=== PATIENT | male | born 1955 | race Caucasian/White ===

== ENCOUNTER 2021-01-11 07:12 | Emergency (ER) | payer MEDICAID, OTHER ==
[~2021-01-11] VITALS: Ht 175.3 cm; Wt 81.8 kg
[~2021-01-11 07:12] MED LIST: ACET-2247 PO; AUD NEB; BISA10SU11 PR; DOCU-275 PO; HEPA500018 SQ; HYDR-4061 PO; IPRNEB IH; MOM30 PO; SLOMG PO; ZOLP-280 PO
[2021-01-11] MEDS ORDERED: AMPI500C68 PO (07:20)
[2021-01-11] MEDS ORDERED: [UNRECOGNIZED DRUG - CODE] PO (07:54)
[2021-01-11] MEDS ORDERED: AMOX500C2 PO (07:54)
[2021-01-11] MEDS ORDERED: ASPI81TA87 PO (07:54)
[2021-01-11] MEDS ORDERED: LENA10CA PO (07:58)
[2021-01-11] MEDS ORDERED: ACYC200C24 PO (07:58)
[2021-01-11 09:36] LABS: BASOPHILS % (AUTO) 0.3 % (0.0-2.0); EOSINOPHILS % (AUTO) 3.5 % (1.0-6.0); HEMATOCRIT 34.8 % (41-53); HEMOGLOBIN 11.2 g/dL (13.5-17.5); LYMPHOCYTES # (AUTO) 0.8 K/uL (1.0-4.8); LYMPHOCYTES % (AUTO) 13.5 % (22.0-44.0); MEAN CORPUSCULAR HEMOGLOBIN 30.5 pg (26.0-34.0); MEAN CORPUSCULAR HGB CONC 32.1 G/dL (31.0-37.0); MEAN CORPUSCULAR VOLUME 95 fL (80-100); MONOCYTES # (AUTO) 0.8 K/uL (0.1-1.0); MONOCYTES % (AUTO) 12.7 % (2.0-9.0); NEUTROPHILS # (AUTO) 4.3 K/uL (1.8-7.7); PLATELET COUNT (AUTO) 365 K/uL (150-450); RED BLOOD CELL COUNT(AUTO) 3.66 MIL/uL (4.50-5.90); RED CELL DISTRIBUTION WIDTH 16.7 % (11.5-14.5)
[2021-01-11 09:43] LABS: ANION GAP 6 mmol/L (8-16); CALCIUM, TOTAL 8.6 mg/dL (8.8-10.5); CARBON DIOXIDE 30 mmol/L (22-29); CHLORIDE 104 mmol/L (98-107); CREATININE 1.08 mg/dL (0.60-1.30); GLOMERULAR FILTR. RATE CALC > 60 mL/min (>60); GLUCOSE,RANDOM 114 mg/dL (70-110); POTASSIUM 4.2 mmol/L (3.5-5.1); SODIUM SERUM 140 mmol/L (136-145); UREA NITROGEN, BLOOD 14 mg/dL (7-18)
[2021-01-11 09:50] LABS: INR 1.1 (0.9-1.1); PROTHROMBIN TIME 11.6 SEC (9.4-11.6)
[2021-01-11 09:51] LABS: ALANINE AMINOTRANSFERASE 22 U/L (12-78); ALKALINE PHOSPHATASE 70 U/L (46-116); ASPARTATE AMINOTRANSFERASE 14 U/L (15-37); BILIRUBIN,TOTAL 0.4 mg/dL (0.1-1.0); TOTAL PROTEIN, SERUM 6.8 g/dL (6.4-8.2)
[2021-01-11 10:15] VITALS: BP 135/69
== END 2021-01-11 11:11 | disposition home or self-care (01) ==
LOC: EMS 07:22
DX: C90.00 Multiple myeloma not having achieved remission (principal); N50.1 Vascular disorders of male genital organs; N40.0 Benign prostatic hyperplasia without lower urinary tract symptoms; R60.0 Localized edema; M89.9 Disorder of bone, unspecified; F17.210 Nicotine dependence, cigarettes, uncomplicated; F12.90 Cannabis use, unspecified, uncomplicated
CPT/HCPCS: 72170; 99284; 71045-TC